=== PATIENT | female | born 1995 | race Caucasian/White ===

== ENCOUNTER 2017-10-13 10:09 | Outpatient (CLI) | payer BC | END 2017-10-13 10:10 | disposition home or self-care (01) | LOC: BICULT 10:09 | PROVIDERS: ATTEND Family Medicine | DX: N63.20 Unspecified lump in the left breast, unspecified quadrant (principal) ==

== ENCOUNTER 2018-05-11 09:58 | Outpatient (CLI) | payer BC ==
--- NOTE | 2018-05-11 11:30 | ULT ---
LEFT BREAST ULTRASOUND: HISTORY: Left breast mass. COMPARISON: 10/13/2017 FINDINGS: Sonographic evaluation of the regional of palpable concern at the 9:00 o'clock position of the left b reast, 1 cm from the nipple, demonstrates a well circumscribed, oval, solid, nonshadowing mass, measu ring 2.5 x 1.2 x 1.8 cm, and is stable since the previous exam. 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 IMPRESSION: BI-RADS category 3-Probably benign findings. A follow-up exam is recommended in six months if tissue sampling (biopsy) is not performed. POS: OFF
== END 2018-05-11 09:59 | disposition home or self-care (01) ==
LOC: BICULT 09:58
PROVIDERS: ATTEND Family Medicine
DX: N63.24 Unspecified lump in the left breast, lower inner quadrant (principal)